=== PATIENT | female | born 1985 | race Caucasian/White ===

== ENCOUNTER → 2023-12-06 07:41 | Outpatient (REF) | payer BC, SELFPAY | LOC: HWRAD 07:41 | PROVIDERS: ATTENDING PHYSICIAN Obstetrics & Gynecology; FAMILY PHYSICIAN Family Medicine | DX: N83.209 Unspecified ovarian cyst, unspecified side (principal) | CPT/HCPCS: 76830; 76856 ==

== ENCOUNTER → 2024-03-07 09:59 | Outpatient (REF) | payer BC, SELFPAY | LOC: HWRAD 09:59 | PROVIDERS: ATTENDING PHYSICIAN Obstetrics & Gynecology; FAMILY PHYSICIAN Family Medicine | DX: N83.201 Unspecified ovarian cyst, right side (principal) | CPT/HCPCS: 76830; 76856 ==

== ENCOUNTER → 2024-11-07 14:44 | Outpatient (REF) | payer BC, SELFPAY | LOC: HWRAD 14:44 | PROVIDERS: ATTENDING PHYSICIAN Obstetrics & Gynecology; FAMILY PHYSICIAN Family Medicine | DX: Z33.1 Pregnant state, incidental (principal) | CPT/HCPCS: 76801 ==

== ENCOUNTER → 2024-12-18 07:47 | Outpatient (REF) | payer BC, SELFPAY | LOC: PNTC 07:47 | PROVIDERS: ATTENDING PHYSICIAN Obstetrics & Gynecology | DX: Z36.0 Encounter for antenatal screening for chromosomal anomalies (principal); Z36.82 Encounter for antenatal screening for nuchal translucency; O09.521 Supervision of elderly multigravida, first trimester | CPT/HCPCS: 76801; 76813 ==